=== PATIENT | male | born 1975 | race Caucasian/White ===

== ENCOUNTER 2016-10-02 17:00 | Emergency (ER) | payer BC, MEDICAID, OTHER ==
[2016-10-02] MEDS ORDERED: Sodium Chloride 0.9% 1,000 ML IV ONE (17:12)
[2016-10-02] MEDS ORDERED: Lidocaine/EPINEPHrine/Tetracaine Soln 5 ML Each TOP ONE (17:14)
[2016-10-02] MEDS ORDERED: Diphtheria,Pertussis(Acell),Tetanus Vaccine 0.5 ML SDV IM ONE (17:14)
[2016-10-02] MEDS ORDERED: Lidocaine 1% 20 ML MDV INJECT ONE (18:16)
--- NOTE | 2016-10-02 19:53 | EDM.PDOC ---
ED HPI GENERAL MEDICAL PROBLEM - General Chief Complaint: Neuro Symptoms/Deficits Stated Complaint: ?SEIZURE Time Seen by Provider: 10/02/16 17:15 Source of Information: Reports: Patient, EMS History Limitations: Reports: No Limitations - History of Present Illness INITIAL COMMENTS - FREE TEXT/NARRATIVE: Jose is a 41 year old male with a long standing ETOH abuse hx who presents to the ED today via EMS after having a reported witnessed 2 minute grand mal seizure by his mom. Patient reports he drinks on a daily basis, he has had less ETOH the last couple of days secondary to traveling here for a family member's . Patient denies any hx of ETOH withdrawal seizures. Patient reports he has been through detox and chem dep multiple times in the past for his ETOH use with no prison success. Patient arrives with with c/o anxiety, he is tremulous, he endorses mild nausea. Patient did sustain a forehead laceration from striking his head on a picnic table prior to falling to the ground, he also c/o nasal bridge pain from striking his head/face. Patient denies any neck, chest or abdominal pain. Patient does endorse abdominal bloating that comes and goes, this has been present for the last several months. Patient denies any known medical problems. He lacks a primary care provider. Onset: Today Abdominal Pain Score (Numeric/FACES): 3 - Related Data Allergies Allergy/AdvReac Type Severity Reaction Status Date / Time No Known Allergies Allergy Verified 10/02/16 17:29 Home Meds: Home Meds NK [No Known Home Meds] 10/02/16 [History] Past Medical History Cardiovascular History: Reports: Hypertension Gastrointestinal History: Reports: Other (See Below) Other Gastrointestinal History: bloating epigastric distress Psychiatric History: Reports: Addiction, Anxiety - Infectious Disease History Infectious Disease History: Reports: Chicken Pox - Past Surgical History GI Surgical History: Reports: Appendectomy Social & Family History - Tobacco Use Smoking Status *Q: Current Every Day Smoker Years of Tobacco use: 25 Packs/Tins Daily: 1 Used Tobacco, but Quit: No Second Hand Smoke Exposure: Yes - Caffeine Use Caffeine Use: Reports: Coffee, Soda - Alcohol Use Days Per Week of Alcohol Use: 7 Number of Drinks Per Day: 5 Total Drinks Per Week: 35 Date of Last Drink: 10/02/16 Time of Last Drink: 15:30 - Recreational Drug Use Recreational Drug Use: Yes Drug Use in Last 12 Months: No Recreational Drug Type: Reports: Marijuana/Hashish, Methamphetamine Recreational Drug Use Frequency: Not Used In Over 6 Months Recreational Drug Last Use: 2012 ED ROS GENERAL - Review of Systems Review Of Systems: See Below Constitutional: Reports: Diaphoresis HEENT: Reports: Nose Pain Respiratory: Reports: No Symptoms Cardiovascular: Reports: No Symptoms Endocrine: Reports: No Symptoms GI/Abdominal: Reports: Distension : Reports: No Symptoms Skin: Reports: No Symptoms, Other (forehead lac) Neurological: Reports: Headache, Seizure, Tremors Psychiatric: Reports: Anxiety Hematologic/Lymphatic: Reports: No Symptoms Immunologic: Reports: No Symptoms - Physical Exam Exam: See Below Exam Limited By: No Limitations General Appearance: Alert, WD/WN Eye Exam: Bilateral Eye: EOMI, PERRL Ears: Normal External Exam, Normal Canal, Normal TMs Nose: Normal Inspection, Other (Dried blood to right nare) Throat/Mouth: Normal Inspection, Normal Oropharynx, No Airway Compromise Head Exam: Other (2.5 cm lac to right lateral eyebrow. Small abrasion to top of head. ) Neck: Normal Inspection, Supple, Non-Tender, Full Range of Motion Respiratory/Chest: No Respiratory Distress, Lungs Clear Cardiovascular: Normal Peripheral Pulses, Regular Rate, Rhythm, No Murmur GI/Abdominal: Normal Bowel Sounds, Soft, Non-Tender Neuro Exam (Abbreviated): Alert, Oriented, Other (Tremors, tongue vesiculations) Back Exam: Normal Inspection Extremities: Other (small area of ecchymosis and swelling to right hand, dorsal aspect) Course - Vital Signs Text/Narrative:: Jose is a 41 year old male who presents to the ED today via EMS after having witnessed seizure. Please refer to HPI and focused exam. Patient arrives here with laceration to lateral right eyebrow. He is mildly tachycardic. Patient is tremulous with tongue vesiculations. CIWA on arrival is 11. PIV was established enroute, patient was given 10 mg of IV Valium on arrival here. 1 liter of NS was administered. patient has some improvement in symptoms with valium, additional dose was given. CT scan of head and maxillofacial were obtained and are both unremarkable except for a small right sided emilia-orbital hematoma consistent with patient's laceration location. Blood work reveals an elevated ALT, AST and alkaline phos, likely stemming from undiagnosed cirrhosis secondary to drinking hx. Based on ongoing withdrawal symptoms and first time withdrawal seizure, patient really would benefit from medical admission for ongoing withdrawal treatment, he would meet ICU admission criteria here and unfortunately we are out of beds. Patient and his family are requesting to go to [facility]. Patient was graciously accepted for transfer by Dr. Haddad. Patient was given an additional 10 mg valium for current ciwa of 9 prior to transfer and will be transferred in stable condition. Lac Repair done of right fore head lac. Patient prepped with LET and 3 ml of 1 % lidocaine. 5, 5-0 ethilon sutures were placed without difficulty after laceration was well irrigated with saline. Patient tolerated well. Last Recorded V/S: Last Vital Signs Temp 36.9 C 10/02/16 17:28 Pulse 87 10/02/16 18:18 Resp 19 10/02/16 17:36 BP 136/91 H 10/02/16 18:18 Pulse Ox 100 10/02/16 18:18 - Orders/Labs/Meds Orders: Active Orders 24 hr Category Date Time Status Vaccines to be Administered [RC] PER UNIT ROUTINE Care 10/02/16 17:14 Active Head wo Cont [CT] Stat Exams 10/02/16 17:13 Taken Max Facial Sinus wo Cont [CT] Stat Exams 10/02/16 17:14 Taken INR,PT,PROTHROMBIN TIME [COAG] Stat Lab 10/02/16 19:34 Ordered Labs: Laboratory Tests 10/02/16 10/02/16 10/02/16 Range/Units 17:17 17:17 17:17 WBC 6.1 (4.5-11.0) K/uL RBC 4.32 (4.30-5.90) M/uL Hgb 15.1 H (12.0-15.0) g/dL Hct 42.0 (40.0-54.0) % MCV 97 (80-98) fL MCH 35 H (27-31) pg MCHC 36 (32-36) % Plt Count 166 (150-400) K/uL Neut % (Auto) 71 H (36-66) % Lymph % (Auto) 14 L (24-44) % Hamlin % (Auto) 14 H (2-6) % Eos % (Auto) 1 L (2-4) % Baso % (Auto) 1 (0-1) % Sodium 133 L (140-148) mmol/L Potassium 3.6 (3.6-5.2) mmol/L Chloride 95 L (100-108) mmol/L Carbon Dioxide 24 (21-32) mmol/L Anion Gap 17.6 H (5.0-14.0) mmol/L BUN 7 (7-18) mg/dL Creatinine 1.1 (0.8-1.3) mg/dL Est Cr Clr Drug Dosing 90.72 mL/min Estimated GFR (MDRD) > 60 (>60) Glucose 115 H (74-106) mg/dL Calcium 9.2 (8.5-10.1) mg/dL Total Bilirubin 0.9 (0.2-1.0) mg/dL AST 240 H (15-37) U/L ALT 211 H (12-78) U/L Alkaline Phosphatase 119 H (46-116) U/L Total Protein 8.4 H (6.4-8.2) g/dL Albumin 4.2 (3.4-5.0) g/dL Globulin 4.2 H (2.3-3.5) g/dL Albumin/Globulin Ratio 1.0 L (1.2-2.2) Ethyl Alcohol 3 mg/dL Meds: Medications Discontinued Medications Generic Name Dose Route Start Last Admin Trade Name Freq PRN Reason Stop Dose Admin Diazepam 10 mg 10/02/16 17:13 10/02/16 17:38 Valium IVPUSH 10/02/16 17:14 10 mg ONETIME ONE Administration Diazepam 10 mg 10/02/16 18:16 10/02/16 18:25 Valium IVPUSH 10/02/16 18:17 10 mg ONETIME ONE Administration Diphtheria/Tetanus/Acell Pertussis 0.5 ml 10/02/16 17:14 10/02/16 17:39 Adacel IM 10/02/16 17:15 0.5 ml .ONCE ONE Administration Sodium Chloride 1,000 mls @ 999 mls/hr 10/02/16 17:12 10/02/16 17:37 Normal Saline IV 10/02/16 18:12 999 mls/hr .BOLUS ONE Administration Lidocaine HCl 20 ml 10/02/16 18:16 10/02/16 18:26 Xylocaine 1% INJECT 10/02/16 18:17 20 ml ONETIME ONE Administration Lidocaine/Tetracaine 5 ml 10/02/16 17:14 10/02/16 17:42 Let Soln TOP 10/02/16 17:15 5 ml ONETIME ONE Administration Departure - Departure Time of Disposition: 21:00 Disposition: DC/Tfer to [email or web address] Condition: good Clinical Impression: Alcohol withdrawal Qualifiers: Complication of substance-induced condition: uncomplicated Qualified Code(s): F10.230 - Alcohol dependence with withdrawal, uncomplicated Alcohol withdrawal seizure Qualifiers: Complication of substance-induced condition: uncomplicated Qualified Code(s): F10.230 - Alcohol dependence with withdrawal, uncomplicated Forehead laceration Qualifiers: Encounter type: initial encounter Qualified Code(s): S01.81XA - Laceration without foreign body of other part of head, initial encounter - Discharge Information Forms: ED Department Discharge - My Orders Last 24 Hours: My Active Orders 10/02/16 17:13 Head wo Cont [CT] Stat 10/02/16 17:14 Vaccines to be Administered [RC] PER UNIT ROUTINE Max Facial Sinus wo Cont [CT] Stat 10/02/16 19:34 INR,PT,PROTHROMBIN TIME [COAG] Stat - Assessment/Plan Last 24 Hours: My Active Orders 10/02/16 17:13 Head wo Cont [CT] Stat 10/02/16 17:14 Vaccines to be Administered [RC] PER UNIT ROUTINE Max Facial Sinus wo Cont [CT] Stat 10/02/16 19:34 INR,PT,PROTHROMBIN TIME [COAG] Stat
[2016-10-02 20:05] VITALS: BP 132/95
== END 2016-10-02 21:04 ==
LOC: JP.ED 17:00
DX: F10.239 Alcohol dependence with withdrawal, unspecified (principal); S01.81XA Laceration without foreign body of other part of head, initial encounter; F10.230 Alcohol dependence with withdrawal, uncomplicated; I10 Essential (primary) hypertension; Z90.89 Acquired absence of other organs; F17.210 Nicotine dependence, cigarettes, uncomplicated; W22.8XXA Striking against or struck by other objects, initial encounter
CPT/HCPCS: 36415; 70450; 70486; 80053; 85025; 85610; 90471; 90715; 96361; 96374; 96376; 99285; A9270; G0480; J3360; J7040